=== PATIENT | female | born 1965 | race Caucasian/White ===

== ENCOUNTER 2019-07-18 07:00 | Outpatient (CLI) | payer OTHER, SELFPAY ==
[2019-07-18 12:50] LABS: Calculated LDL 117 mg/dL; Cholesterol 219 mg/dL (50-200); HDL Cholesterol 78 mg/dL (40-60); Triglyceride 121 mg/dL (30-150)
== END 2019-07-18 07:20 ==
PROVIDERS: PCP Emergency Medicine; Visit Provider Emergency Medicine
DX: E78.5 Hyperlipidemia, unspecified (principal)
CPT/HCPCS: 36415; 80061

== ENCOUNTER 2019-08-15 06:16 | Outpatient (CLI) | payer OTHER, SELFPAY ==
--- NOTE | 2019-08-15 15:12 | DI.MAMMO_ITS ---
EXAM: MAMMO SCREENING CLINICAL HISTORY: screening Z12.39. TECHNIQUE: Mammograms were interpreted according to the usual protocol including computer analysis w [employer] CAD system, tomosynthesis and C-view imaging. FINDINGS: The breast tissue is of moderate radiodensity. When compared with previous images, again noted is th e rounded opacity in the lateral subareolar portion of the right breast, unchanged. There are no castillo picious calcifications. IMPRESSION: No significant interval change. No evidence of malignancy, category 2. Breast density, category B. BI-RADS Cat 2 - Benign Findings. Breast Density - Category B - Scattered areas of fibroglandular density.
== END 2019-08-15 06:36 ==
PROVIDERS: PCP Emergency Medicine; Visit Provider Emergency Medicine
DX: Z12.31 Encounter for screening mammogram for malignant neoplasm of breast (principal); N60.81 Other benign mammary dysplasias of right breast
CPT/HCPCS: 77063; 77067

== ENCOUNTER 2019-11-05 10:13 | Day surgery (SDC) | payer OTHER, SELFPAY ==
--- NOTE | 2019-11-05 06:51 | W.COLOREPORT ---
Date of service: 11/05/19 Time of Service: 10:52 Colonoscopy Report Date of procedure: 11/05/19 Pre-op diagnosis general: Colon Cancer Screening Post-op diagnosis procedure note: same Procedure: Colonoscopy Surgeon: Juli Simon Anesthesia proc note operative: other (General/ ASA 2/Larry Chapa, SHAY) Estimated blood loss (mL): 0 Pathology: none sent Complications: None Disposition: same day Indications: 54 y/o female presents for colonoscopy screening pre-op. Her last screening was in 2008, which was unremarkable. She reports a family history of colon cancer in a paternal aunt. She denies any changes in bowel habits including bloody or black tarry stools, abdominal pain, diarrhea or constipation. She denies constitutional symptoms. Denies use of marijuana or any other recreational or illegal drugs. Prep: Miralax/Dulcolax Procedure Start Time: 10:52 Procedure End Time: 11:11 Retraction Time: 13 minutes Findings: Normal colon Procedure Description: After informed consent was obtained the patient was taken to the procedure room and placed in a left decubitous position. Monitors were applied and a time out was done. The patients name, date of , procedure, allergies to medications and metal in their body was reviewed. The patient was then sedated. Once sedated and comfortable a rectal exam was done. External exam was normal. Internal exam revealed a normal sphincter tone and no palpable masses. The scope was then introduced and retro-flexed. No internal hemorrhoids, masses or polyps were identified on retro-flexion. The scope was then advanced to the cecum with some difficulty due to a tortuous colon. The TI and appendiceal orifice were identified. The prep was good. The scope was then slowly retracted over 13 minutes back into the rectum. There were no polyps or diverticula. The scope was removed and the patient was woken up and taken back to Same day surgery in stable condition. The patient tolerated the procedure well and there were no immediate complications. Follow up: The patient should follow up in 10 years unless they develop changes in bowel habits or other new gastrointestinal complaints.
--- NOTE | 2019-11-05 06:52 | W.PM.DSUDISC ---
Discharge Plan Disposition Patient Disposition: HOME Condition: Good Discharge Details Reason For Visit: Colon CAncer Screening Attending Provider: Juli Simon Primary Care Provider: Oumar Bates Home Meds and New Rx's Prescriptions: Continued ibuprofen 800 MG tablet 800 mg PO PRN PRNQty: 30 RF: 1 estradiol [Estrace] 2 mg tablet 2 mg PO DAILY Qty: 90 RF: 4 Discontinued polyethylene glycol 3350 17 gram/dose powder 238 g PO ONCE Qty: 238 RF: 0 bisacodyl [Dulcolax (bisacodyl)] 5 mg tablet,delayed release (DR/EC) 5 mg PO ONCE Qty: 4 RF: 0 Discharge Instructions Additional Instructions: Findings: Normal colonoscopy Follow up: 10 years Please call if you develop: fevers >101.5 Nausea or Vomiting Abdominal pain that is not transient DAY SURGERY UNIT POST ENDOSCOPY INSTRUCTIONS 1. Because there will be medication in your system for the next 24 hours, you may feel a little sleepy. Your coordination will be affected. Therefore: a. Do not drive or operate dangerous equipment for 24 hours. b. Do not drink alcohol beverages for 24 hours (not even beer). c. Plan to go home and rest for the day. 2. Generally there are no restrictions on your activity after a day or so has gone by, but you may feel a bit fatigued for a few days. 3 After you arrive home you may have a light meal and return to a normal diet as you can tolerate it without feeling sick to your stomach. 4. After surgery, you may feel pain or discomfort. This should be only transient, but if it persists please contact your doctor. 5. If there are any questions regarding the findings of your procedure, please feel free to contact your doctor. 6. If you are unable to contact your doctor with a problem, contact the hospital at [phone]. 7. Continue all your regular medications unless directed otherwise. I understand the above instructions and have no questions. Signature of Patient or Responsible Adult Escort Date/Time Name of Responsible Adult Escort Signature of Nurse Date/Time Activity:: Activity as Tolerated Diet:: As Tolerated Discharge Orders Discharge Orders: Discharge Order (Routine); Ordered 11/05/19 Ordered By: Juli Simon
[2019-11-05 10:35] VITALS: BP 126/88; PULSE 73; RESP 16; TEMP 36.1; O2SAT 100
[2019-11-05] MEDS: Lactated Ringers 1,000 ML 80 ML IV (10:40)
[2019-11-05 11:48] VITALS: BP 132/66; PULSE 63; RESP 18; TEMP 36; O2SAT 99
== END 2019-11-05 12:06 | disposition home or self-care (01) ==
LOC: SUR 10:13
PROVIDERS: PCP Emergency Medicine; Visit Provider Surgery
PROC: 0DJD8ZZ Inspection of Lower Intestinal Tract, Via Natural or Artificial Opening Endoscopic (ICD-10-PCS; CPT 45378; principal; 2019-11-05 11:30)
DX: Z12.11 Encounter for screening for malignant neoplasm of colon (principal); Z80.0 Family history of malignant neoplasm of digestive organs; K63.89 Other specified diseases of intestine
CPT/HCPCS: 45378

== ENCOUNTER 2019-12-26 14:45 | Outpatient (REF) | payer OTHER, SELFPAY | END 2019-12-26 15:05 | LOC: LBN 14:45 | PROVIDERS: PCP Emergency Medicine; Visit Provider Nurse Practitioner Family | DX: N76.0 Acute vaginitis (principal) | CPT/HCPCS: 87480; 87510; 87660 ==

== ENCOUNTER 2020-07-28 00:53 | Outpatient (CLI) | payer OTHER, SELFPAY ==
--- NOTE | 2020-07-28 07:30 | DI.US_ITS ---
EXAM: US ABDOMEN PELVIS CLINICAL HISTORY: LUQ and RLQ pain,ABD AND PELVIC PAIN,R10.9,R10.2 TECHNIQUE: Ultrasound performed using standard protocol. COMPARISON: US ABDOMEN ULTRASOUND (P) from 08/23/2016 FINDINGS: Ultrasound examination the and pelvis was performed. Patient has reportedly had a prior hysterectomy and oophorectomy. There is no gross pelvic mass or fluid collection, no ovary visualized. Liver contains multiple echogenic lesions, these were previously described on prior ultrasound examin ation July 2016. The largest reported lesion on prior study was about 34 millimeters in greatest diameter, largest lesion seen today's 40 millimeters. There is a question of additional new hepatic lesions in the right hepatic lobe which are poorly defined. Note is made of a prior cholecystectomy. No biliary dilatation. Pancreas appears intact. Spleen is unremarkable. Kidneys are normal in size and shape with no renal mass, hydronephrosis, or nephrolithiasis. Abdominal aorta and IVC are of normal diameter. IMPRESSION: Question new hepatic lesions in a patient with previously noted presumed stable hepatic hemangiomas. Additional evaluation with multi phasic contrast enhanced CT is recommended to rule out interval deve lopment of hepatic neoplasm. DATA REPOSITORY:
== END 2020-07-28 01:13 ==
PROVIDERS: PCP Emergency Medicine; Visit Provider Emergency Medicine
DX: R10.2 Pelvic and perineal pain (principal); R10.12 Left upper quadrant pain; R10.31 Right lower quadrant pain
CPT/HCPCS: 76700; 76856

== ENCOUNTER 2020-08-06 01:41 | Outpatient (CLI) | payer OTHER, SELFPAY ==
[2020-08-06] MEDS: Omnipaque 350 MG/ML 100 ML BTL IJ (08:53)
[2020-08-06] MEDS: Normal Saline Flush 10 ML SYR IVP (08:54)
[2020-08-06] MEDS: Normal Saline - Diluent 50 ML VIAL IV (08:54)
--- NOTE | 2020-08-06 09:15 | DI.CT_ITS ---
EXAM: CT ABDOMEN WO/W is CLINICAL HISTORY: Increase in number of liver cystS,liver mass,r16.0. TECHNIQUE: Imaging Protocol: Axial computed tomography images with coronal and sagittal reformatted images were created and reviewed CONTRAST MATERIAL: Intravenous: Omnipaque 350 Contrast volume:100 mL contrast route:IV - Oral: No COMPARISON: CT UPPER ABD WITH CONTRAST (P) from 11/24/2009 US US ABDOMEN PELVIS from 07/28/2020 FINDINGS: ABDOMEN: Lung Bases: Normal where visualized. Liver: Normal density. There are again seen 6 hepatic masses. They all exhibit peripheral nodular enh ancement which continues through to the delayed images. The largest lesion is in the posterior segmen t of the right lobe of the liver and measures 3.5 x 3.6 cm. The smallest lesion measures 0.7 cm in ma ximum diameter. The 5 largest lesions have shown interval increase in size compared to the examinatio n from 11/24/2009. On the 25 minute delayed images, the 2 largest lesions which are in the posterior se gment of the right lobe show incomplete enhancement centrally. No new hepatic lesions are identified. Gallbladder and biliary tract: Status post cholecystectomy. No significant biliary ductal dilatation. Pancreas: Normal density, no abnormal calcifications or inflammatory process. Spleen: Normal. 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 Kidneys: Normal size, contour and axis. No radiodense stones or obstructive uropathy. No masses seen. Adrenal glands: There is a stable left adrenal nodule likely reflecting an adenoma. No right adrenal mass is present. Abdominal Aorta: Abdominal portion non-dilated. Lymph nodes: Within normal limits. Peritoneal cavity: No abdominal ascites, adenopathy or pneumoperitoneum. Bowel: No evidence of obstruction or bowel wall thickening. Bones: Mild degenerative changes. Soft tissues: Unremarkable. IMPRESSION: Stable number of hepatic lesions which show progressive peripheral enhancement. Findings are most sug gestive of hepatic hemangiomas. There has been slight increase in size of the hepatic lesions since . RADIATION DOSE DELIVERED: 1,670.54mGy.cm Total DLP DATA REPOSITORY: All CT scans at this facility are submitted to the National Radiology Data Registry (NRDR) Dose Index Registry (DIR) with the [employer] (ACR). RADIATION OPTIMIZATION: All CT scans at this facility use at least one of these dose optimization te chniques: automated exposure control; mA and/or kV adjustment per patient size (includes targeted exa ms where dose is matched to clinical indication); or iterative reconstruction.
== END 2020-08-06 02:01 ==
PROVIDERS: PCP Emergency Medicine; Visit Provider Emergency Medicine
DX: K76.89 Other specified diseases of liver (principal)
CPT/HCPCS: 74170; J3490

== ENCOUNTER 2020-11-14 11:10 | Outpatient (CLI) | payer OTHER, SELFPAY ==
[2020-11-16 10:36] LABS: COVID-19 RT-PCR Result NEGATIVE (Negative)
== END 2020-11-14 11:30 ==
PROVIDERS: PCP Emergency Medicine; Visit Provider Emergency Medicine
DX: Z20.828 Contact with and (suspected) exposure to other viral communicable diseases (principal)
CPT/HCPCS: U0003

== ENCOUNTER 2022-02-05 00:22 | Outpatient (CLI) | payer OTHER, SELFPAY ==
--- NOTE | 2022-02-05 07:15 | DI.MAMMO_ITS ---
Exam(s) MAMMO SCREENING EXAM: MAMMO SCREENING CLINICAL HISTORY: screening,z12.39 TECHNIQUE: Bilateral full field digital CC and MLO mammographic images were obtained with 3D tomosyn thesis and utilizing computer aided detection (CAD). COMPARISON: Available for comparison. FINDINGS: Masses/Architectural Distortion: There has been interval decrease in size of the nodule in the upper outer quadrant of the right breast. No suspicious masses or areas of architectural distortion are pr esent. Microcalcifications: No suspicious pleomorphic-type are seen. Skin Thickening/Nipple Retraction: None. IMPRESSION: 1. No significant interval change with no specific features of malignancy noted. 2. Unless there is more urgent need, screening mammography is recommended, as per [employer] guidelines. BI-RADS Category 2 - Benign Findings Breast Density - Category B - Scattered areas of fibroglandular density Breast density category C or D implies that the patient has dense breast tissue. Dense breast tissue is very common and is not abnormal but dense breast tissue can make it harder to find cancer on a ma mmogram. Also, dense breast tissue may increase their breast cancer risk. This information about the result of the mammogram report was provided to the patient to raise their awareness. Use this report when you speak with the patient about their risks for breast cancer, which includes their family hist ory. At that time, you may recommend for more screening tests (Ultrasound or MRI) as they might be us eful based on their risk. A negative radiographic report should not delay biopsy if a dominant or clinically suspicious mass is present. Up to ten percent of cancers are not identified on mammography. A negative report may reinforce clinical impression. Adenosis and dense breasts may obscure an underlying neoplasm. False positive reports average 6 to 10%. Patient will receive a letter notifying them of these results.
== END 2022-02-05 00:42 ==
PROVIDERS: PCP Family Medicine; Visit Provider Emergency Medicine
DX: Z12.31 Encounter for screening mammogram for malignant neoplasm of breast (principal)
CPT/HCPCS: 77063; 77067

== ENCOUNTER 2023-01-11 02:37 | Outpatient (CLI) | payer OTHER, SELFPAY ==
[2023-01-11 13:15] LABS: Anion Gap 5.7 mmol/L (3-11); BUN 12 mg/dL (7-18); CO2 28.3 mmol/L (21.0-32.0); CREATININE 0.8 mg/dL (0.55-1.02); Calcium 9.2 mg/dL (8.5-10.1); Chloride 107 mmol/L (98-107); Estimated GFR 84.82 (mL/min/1.73m2); Glucose 90 mg/dL (74-106); Potassium 4.3 mmol/L (3.5-5.1); Sodium 141 mmol/L (136-145)
== END 2023-01-11 02:38 | disposition home or self-care (01) ==
LOC: LOS 02:38
PROVIDERS: PCP Nurse Practitioner Family; Visit Provider Nurse Practitioner Family
DX: R03.0 Elevated blood-pressure reading, without diagnosis of hypertension (principal); Z13.1 Encounter for screening for diabetes mellitus; F41.8 Other specified anxiety disorders
CPT/HCPCS: 36415; 80048

== ENCOUNTER 2023-01-19 01:28 | Outpatient (CLI) | payer OTHER, SELFPAY ==
--- NOTE | 2023-01-19 07:00 | DI.MAMMO_ITS ---
Exam(s) US BREAST LT LIMITED MG MAMMO DIAGNOSTIC BI EXAM: MAMMO DIAGNOSTIC BI and U/S breast LT limited CLINICAL HISTORY: 2 weeks of tenderness, no palpable mass,lt breast pain. TECHNIQUE: Craniocaudal and mediolateral oblique Full Field Digital Mammography views with Computer Aided Diagnosis followed by Tomosynthesis and left breast ultrasound. COMPARISON: Comparison is made with prior examinations. FINDINGS: Mammography/Tomosynthesis: Masses/Architectural Distortion: None seen. Microcalcifictions: No suspicious pleomorphic-type are seen. Skin Thickening/Nipple Retraction: None. Limited left breast US: Echotexture: Normal appearance of the glandular tissue. Shadowing: No suspicious foci. Cyst: None. Solid lesions: None seen. Ductal dilation: None. IMPRESSION: 1. No evidence of malignancy is noted. 2. Unless there is more urgent need, follow-up screening mammography is recommended, as per [employer] guidelines. 3. The findings were discussed with the patient on the date of the examination. BI-RADS Category 1 - Negative Breast Density - Category B - Scattered areas of fibroglandular density Breast density Category C or D implies that the patient has dense breast tissue. Dense breast tissue can make it harder to find cancer on a mammogram. Dense breast tissue is also associated with an incr eased risk of breast cancer. This information about the result of the mammogram report was provided to the patient to raise their awareness. Use this report when you speak with the patient about their risks for breast cancer, which includes their family history. At that time, you may recommend additional screening tests (Ultrasoun d or MRI) as these tests may add significant information. A negative radiographic report should not delay biopsy if a dominant or clinically suspicious mass is present. Up to ten percent of cancers are not identified on mammography. A negative report may reinforce clinical impression. Adenosis and dense breasts may obscure an underlying neoplasm. False positive reports average 6 to 10%. Patient will receive a letter notifying them of these results.
== END 2023-01-19 01:48 ==
LOC: DI 01:28
PROVIDERS: PCP Nurse Practitioner Family; Visit Provider Nurse Practitioner Family
DX: N64.4 Mastodynia (principal)
CPT/HCPCS: 76642; 77062; 77066; G0279

== ENCOUNTER → 2024-02-20 04:22 | Outpatient (CLI) | payer OTHER, SELFPAY ==
--- NOTE | 2024-02-20 07:00 | DI.MAMMO_ITS ---
Exam(s) MAMMO SCREENING EXAM: MAMMO SCREENING CLINICAL HISTORY: screening,z12.39. TECHNIQUE: Bilateral full field digital CC and MLO mammographic images were obtained with 3D tomosyn thesis and utilizing computer aided detection (CAD). COMPARISON: Prior mammograms were reviewed. FINDINGS: There has been no significant change in the appearance and distribution of the fibroglandular tissue. There are no CAD designations. There are no new spiculated masses nor malignant appearing microcalcification groups. In the right breast on the CC view there is an asymmetric density lateral of center located 8 cm in f rom the nipple, measuring 6 x 5 mm, previously present but has progressively decreased in size from O ctober 2019 and therefore most probably a cyst. There is no significant architectural distortion nor skin thickening-retraction. IMPRESSION: Benign-appearing findings. No radiographic evidence of malignancy. BI-RADS Category 2 - Benign Findings Breast Density - Category B - Scattered areas of fibroglandular density Breast density Category C or D implies that the patient has dense breast tissue. Dense breast tissue can make it harder to find cancer on a mammogram. Dense breast tissue is also associated with an incr eased risk of breast cancer. This information about the result of the mammogram report was provided to the patient to raise their awareness. Use this report when you speak with the patient about their risks for breast cancer, which includes their family history. At that time, you may recommend additional screening tests (Ultrasoun d or MRI) as these tests may add significant information. A negative radiographic report should not delay biopsy if a dominant or clinically suspicious mass is present. Up to ten percent of cancers are not identified on mammography. A negative report may reinforce clinical impression. Adenosis and dense breasts may obscure an underlying neoplasm. False positive reports average 6 to 10%. Patient will receive a letter notifying them of these results.
== END ==
PROVIDERS: PCP Nurse Practitioner Family; Visit Provider Nurse Practitioner Family
DX: Z12.31 Encounter for screening mammogram for malignant neoplasm of breast (principal)
CPT/HCPCS: 77063; 77067

== ENCOUNTER 2025-01-18 17:26 | Outpatient (REF) | payer OTHER, SELFPAY ==
[2025-01-18 17:12] LABS: Calculated LDL 131 mg/dL (<100); Cholesterol 217 mg/dL (<200); HDL Cholesterol 73 mg/dL (>or=50); Triglyceride 66 mg/dL (<150)
== END 2025-01-18 17:27 | disposition home or self-care (01) ==
LOC: LBN 17:26
PROVIDERS: PCP Nurse Practitioner Family; Visit Provider Nurse Practitioner Family
DX: Z13.220 Encounter for screening for lipoid disorders (principal)
CPT/HCPCS: 80061

== ENCOUNTER 2025-02-21 02:23 | Outpatient (CLI) | payer OTHER, SELFPAY ==
--- NOTE | 2025-02-21 12:34 | DI.MAMMO_ITS ---
Exam(s) MAMMO SCREENING EXAM: MAMMO SCREENING CLINICAL HISTORY: screening,z12.39 TECHNIQUE: Bilateral full field digital CC and MLO mammographic images were obtained with 3D tomosyn thesis and utilizing computer aided detection (CAD). COMPARISON: Available for comparison. FINDINGS: Masses/Architectural Distortion: No suspicious masses or areas of architectural distortion are presen t. Microcalcifications: No suspicious pleomorphic-type are seen. Skin Thickening/Nipple Retraction: None. IMPRESSION: 1. No significant interval change with no specific features of malignancy noted. 2. Unless there is more urgent need, screening mammography is recommended, as per [employer] guidelines. BI-RADS Category 1 - Negative Breast Density - Category B-there are scattered areas of fibroglandular density Breast density Category C or D implies that the patient has dense breast tissue. Dense breast tissue can make it harder to find cancer on a mammogram. Dense breast tissue is also associated with an incr eased risk of breast cancer. This information about the result of the mammogram report was provided to the patient to raise their awareness. Use this report when you speak with the patient about their risks for breast cancer, which includes their family history. At that time, you may recommend additional screening tests (Ultrasoun d or MRI) as these tests may add significant information. A negative radiographic report should not delay biopsy if a dominant or clinically suspicious mass is present. Up to ten percent of cancers are not identified on mammography. A negative report may reinforce clinical impression. Adenosis and dense breasts may obscure an underlying neoplasm. False positive reports average 6 to 10%. Patient will receive a letter notifying them of these results.
== END 2025-02-21 02:43 ==
LOC: DI 02:24
PROVIDERS: PCP Nurse Practitioner Family; Visit Provider Nurse Practitioner Family
DX: Z12.31 Encounter for screening mammogram for malignant neoplasm of breast (principal); R92.323 Mammographic fibroglandular density, bilateral breasts
CPT/HCPCS: 77063; 77067